=== PATIENT | male | born 1980 | race Caucasian/White ===

== ENCOUNTER → 2020-11-28 | Outpatient (CLI) | payer BC | LOC: KOH-I 16:42 | DX: M50.30 Other cervical disc degeneration, unspecified cervical region (principal) | CPT/HCPCS: 72040; 72070 ==

== ENCOUNTER → 2021-05-31 | Outpatient (CLI) | payer SELFPAY | LOC: EMI 04-08 09:15 | DX: M50.223 Other cervical disc displacement at C6-C7 level (principal); R93.7 Abnormal findings on diagnostic imaging of other parts of musculoskeletal system; M50.30 Other cervical disc degeneration, unspecified cervical region | CPT/HCPCS: 72141 ==

== ENCOUNTER → 2021-12-18 | Outpatient (CLI) | payer OTHER ==
[~2021-12-18] MED LIST: AMITRIPTYLINE H10 MG PO; AZELASTINE137 MCG/0.; CRESTOR 10 MG T10 MG PO; HYDROCODONE-AC1 EAC1 PO; LEVOCETIRIZINE D5 MG PO; LISINOPRIL10 MG PO; METOPROLOL SUCC50 MG PO; NAPROXEN 375 M375 MG PO; NORFLEX 100 MG100 MG PO; ROBAXIN 750 MG750 MG PO; SINGULAIR10 MG PO; TRAMADOL HCL50 MG PO; VITAMIN D21250 MCG PO
[2021-12-18 10:46] LABS: HEMOGLOBIN 15.1 gm/dl (14.0-17.5); RED BLOOD COUNT 4.79 M/UL (4.20-5.50)
[2021-12-18 11:12] LABS: BUN/CREATININE RATIO 14 (0-10)
== END ==
LOC: OPSV2 09:00 → EDSTATUS 09:00 → OPSV2 09:30
PROVIDERS: Orthopaedic Surgery
DX: Z01.818 Encounter for other preprocedural examination (principal); M54.12 Radiculopathy, cervical region; I10 Essential (primary) hypertension
CPT/HCPCS: 36415; 80048; 80307; 81001; 85025; 87081; 93005

== ENCOUNTER → 2021-12-24 | Outpatient (CLI) | payer OTHER ==
[~2021-12-24] MED LIST changes: +ROXICODONE5 MG PO
[2021-12-24 12:35] LABS: BUN/CREATININE RATIO 12 (0-10)
== END ==
LOC: LAB 10:58
PROVIDERS: Orthopaedic Surgery
DX: Z01.818 Encounter for other preprocedural examination (principal); M54.12 Radiculopathy, cervical region; I10 Essential (primary) hypertension
CPT/HCPCS: 36415; 71046; 80048; 86850; 86900; 86901

== ENCOUNTER 2021-12-25 05:27 | Day surgery (SDC) | payer OTHER ==
[~2021-12-25] VITALS: Ht 173 cm; Wt 78.9 kg
[~2021-12-25 05:27] MED LIST changes: -ROXICODONE5 MG PO
[2021-12-25 11:47] LABS: HEMOGLOBIN 14.8 gm/dl (14.0-17.5); RED BLOOD COUNT 4.63 M/UL (4.20-5.50); WHITE BLOOD COUNT 6.8 K/UL (4.5-11.0)
[2021-12-25 12:08] LABS: BUN/CREATININE RATIO 12 (0-10)
[2021-12-26 06:49] LABS: HEMOGLOBIN 13.4 gm/dl (14.0-17.5); RED BLOOD COUNT 4.27 M/UL (4.20-5.50)
[2021-12-26 06:51] LABS: WHITE BLOOD COUNT 9.5 K/UL (4.5-11.0)
[2021-12-26 06:59] LABS: BUN/CREATININE RATIO 11 (0-10)
[2021-12-27 04:58] LABS: HEMOGLOBIN 12.7 gm/dl (14.0-17.5); RED BLOOD COUNT 4.03 M/UL (4.20-5.50)
[2021-12-27 05:04] LABS: WHITE BLOOD COUNT 5.7 K/UL (4.5-11.0)
[2021-12-27 05:19] LABS: BUN/CREATININE RATIO 9 (0-10)
[2021-12-27] MEDS ORDERED: ROXICODONE5 MG PO (09:17)
== END 2021-12-27 14:14 | disposition home or self-care (01) ==
LOC: OR 05:27 → CCU 12:35 → OR 12-27 14:14
PROVIDERS: Orthopaedic Surgery
DX: M54.12 Radiculopathy, cervical region (principal); G89.29 Other chronic pain; M54.2 Cervicalgia; R07.9 Chest pain, unspecified; I10 Essential (primary) hypertension; E78.5 Hyperlipidemia, unspecified; M19.90 Unspecified osteoarthritis, unspecified site; Z88.0 Allergy status to penicillin; Z88.2 Allergy status to sulfonamides; Z91.013 Allergy to seafood; Z79.899 Other long term (current) drug therapy
CPT/HCPCS: 36415; 72040; 76000; 80048; 82550; 82553; 84484; 85007; 85027; 97116-GP-CQ; 97161; 97166; 97535; C1713; C1762; J0690; J1100; J1170; J2001; J2250; J2704; J3010; J7040; J7120